=== PATIENT | female | born 1965 ===

== ENCOUNTER 2017-10-13 16:06 | Emergency (ER) | payer BC ==
[2017-10-13 16:43] VITALS: BP 130/73
[2017-10-13] MEDS ORDERED: Tetan/Diph/Pertus SYR(Tdap)* 0.5 ML SYR(BOOSTRIX) use SYR IM ONE (17:14)
[2017-10-13] MEDS ORDERED: Amoxicillin/Clavulanate TAB* 875 MG PO ONE (17:14)
--- NOTE | 2017-10-13 17:19 | UC ---
Bite Injury/Animal HPI - HPI Summary HPI Summary: Pt is a 52 year old female presenting to the with a chief complaint of a dog bite. Three medium sized dogs, the biggest around 50 pounds, [place] [address] and she saw the dogs, wanting to help them. She got the smallest puppy on a leash, tried to find the dog owners but was unsuccessful. One of the other dogs came up to her and bit her lower left leg, and is unsure if that specific dog had a collar or ID. She bandaged the abrasions with bandaids and Neosporin. She denies pain or impacted gait. Her last tetanus shot was 04/23/10. 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 Severity Currently: Mild Severity Initially: Mild Pain Intensity: 0 Pain Scale Used: 0-10 Numeric Onset/Duration: Sudden Onset, Still Present Type of Bite: Animal - dog Has Animal Been Immunized?: Unknown Character: Abrasion/Laceration Aggravating Factor(s): Nothing Associated Signs And Symptoms: Positive: Erythema Hx of Bite: Unprovoked - on property, trying to find owners of dogs Animal Available for Observation: No Animal Control Notified: No - Allergies/Home Medications Allergies/Adverse Reactions: Allergies Allergy/AdvReac Type Severity Reaction Status Date / Time No Known Allergies Allergy Verified 10/13/17 16:44 PMH/Surg Hx/FS Hx/Imm Hx Previously Healthy: Yes Cardiovascular History: Other Other Cardiovascular History: negative hypertension Respiratory History: Other Other Respiratory History: negative COPD - Surgical History Surgical History: None - Family History Known Family History: Negative: Hypertension, Diabetes - Social History Occupation: Employed Part-time Alcohol Use: Weekly Substance Use Type: None Smoking Status (MU): Never Smoked Tobacco - Immunization History Most Recent Tetanus Shot: 04/23/10 Review of Systems Constitutional: Negative - fever Skin: Other - multiple abrasions on lower left leg All Other Systems Reviewed And Are Negative: Yes Physical Exam - Summary Physical Exam Summary: Appearance: Well-appearing, Well-nourished Skin: Warm, multiple superficial abrasions to left lower anterior leg, covered with Neosporin and bandaids. Nontender to palpation. No underlying erythema. Eyes: Normal ENT: Normal Neck: Supple, nontender Respiratory: Clear to auscultation Cardiovascular: Normal S1, S2. No murmurs. Normal distal pulses in tibial and radial bilaterally. Abdomen: Soft, nontender Musculoskeletal: Normal, Strength/ROM Intact Neurological: Normal distal neuro exam, A&Ox3 Psychiatric: Normal General: No acute distress Gait: normal Triage Information Reviewed: Yes Vital Signs: Initial Vital Signs Temp 98.8 F 10/13/17 16:38 Pulse 72 10/13/17 16:38 Resp 16 10/13/17 16:38 BP 130/73 10/13/17 16:38 Pulse Ox 100 10/13/17 16:38 Vital Signs Reviewed: Yes Bite Injury Course/Dx - Course Course Of Treatment: Distal neurovascular exam remains intact. Patient started on antibiotics and instructed to follow up with primary care physician and to return for any worsening or concerning symptoms. Vital signs stable. Patient also given tetanus shot. agrees to and understands discharge instructions. - Differential Dx/Diagnosis Provider Diagnoses: dog bite lower leg left Discharge - Sign-Out/Discharge Documenting (check all that apply): Patient Departure All imaging exams completed and their final reports reviewed: No Studies - Discharge Plan Condition: Stable Disposition: HOME Prescriptions: Amoxicillin/Clavulanate TAB* [Augmentin TAB 875*] 875 mg PO BID #14 tab Patient Education Materials: Animal Bite (ED) Referrals: No Primary Care Phys,NOPCP [Primary Care Provider] - Additional Instructions: PLEASE FINISH MEDICATIONS DIRECTED. PLEASE KEEP WOUNDS COVERED AND USE ANTIBIOTIC OINTMENT TWICE DAILY. PLEASE SEEK IMMEDIATE MEDICAL ATTENTION FOR ANY WORSENING OR CONCERNING SYMPTOMS. - Billing Disposition and Condition Condition: STABLE Disposition: Home - Attestation Statements Document Initiated by Marlon: Yes Documenting Scribe: Debbie Leonard Provider For Whom Marlon is Documenting (Include Credential): Rob Martinez MD. Scribe Attestation: Debbie Espinoza, scribed for Rob Martinez MD. on 10/13/17 at 2250. Scribe Documentation Reviewed: Yes Provider Attestation: The documentation as recorded by the Debbie polk accurately reflects the service I personally performed and the decisions made by me, Rob Martinez MD.
== END 2017-10-13 17:45 | disposition home or self-care (01) ==
LOC: UCEAST 16:06
DX: S80.872A Other superficial bite, left lower leg, initial encounter (principal); W54.0XXA Bitten by dog, initial encounter; Y93.89 Activity, other specified; Y92.9 Unspecified place or not applicable
CPT/HCPCS: 90471; 90715; 99212; A9270-GY; G0463

== ENCOUNTER 2018-01-02 15:46 | Emergency (ER) | payer BC ==
[2018-01-02 16:00] VITALS: BP 137/83
--- NOTE | 2018-01-02 16:32 | UC ---
Skin Complaint HPI - HPI Summary HPI Summary: 52 y/o female presents to the urgent care c/o a small lump in his Rt buttocks close to her genital area for the past 2 weeks. Pt states she though it was ging to resolve w/ warm compresses, but still present. [place] and she is concern that it is going to worsen, it will get bigger. Pt states pain at touch is 1/10. Pt denies fever, SOB, chest pain,abdominal pain, Hx of MRSA, N/v/D, vaginal discharge or urinary symptoms. 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 Negative: Nausea, Vomiting, Fever, Chills, Abdominal Pain - Allergy/Home Medications Allergies/Adverse Reactions: Allergies Allergy/AdvReac Type Severity Reaction Status Date / Time No Known Allergies Allergy Verified 01/02/18 16:01 Review of Systems All Other Systems Reviewed And Are Negative: Yes Constitutional: Positive: Negative Skin: Positive: Other - small lump in her RT buttucks w/ mild pain and swellig Eyes: Positive: Negative ENT: Positive: Negative Respiratory: Positive: Negative Cardiovascular: Positive: Negative Gastrointestinal: Positive: Negative Genitourinary: Positive: Negative Motor: Positive: Negative Neurovascular: Positive: Negative Musculoskeletal: Positive: Negative Neurological: Positive: Negative Psychological: Positive: Negative Is Patient Immunocompromised?: No PMH/Surg Hx/FS Hx/Imm Hx Previously Healthy: Yes - Pt denies PMHX - Surgical History Surgical History: None - Family History Known Family History: Positive: Cardiac Disease Negative: Diabetes - Social History Occupation: Employed Full-time Lives: With Family Alcohol Use: Weekly Substance Use Type: None Smoking Status (MU): Never Smoked Tobacco - Immunization History Most Recent Tetanus Shot: 04/23/10 Physical Exam - Summary Physical Exam Summary: Vital Signs Reviewed: Yes General: well developed, well nourished female sitting in the examining table w/ o any apparent distress Eye Exam: Normal Eyes: Positive: Conjunctiva Clear - PERRLA, EOMI, fundi grossly normal ENT: Positive: Normal ENT inspection, Hearing grossly normal, Pharynx normal, TMs normal Neck: Positive: Supple, Nontender, No Lymphadenopathy Respiratory: Positive: Chest non-tender, Lungs clear, Normal breath sounds, No respiratory distress Cardiovascular: Positive: RRR, No Murmur, Pulses Normal, Brisk Capillary Refill Abdomen Description: Positive: Nontender, No Organomegaly, Soft. Negative: CVA Tenderness (R), CVA Tenderness (L) Bowel Sounds: Positive: Present Musculoskeletal: Positive: Strength Intact, ROM Intact, No Edema Neurological: Positive: Alert, Muscle Tone Normal Psychological Exam: Normal Skin: Positive: Positive small erythematous pustule on the RT gluteus that is mildly indurated and fluctuant, no tenderness to palpation, discrete swelling, and warm to touch about 0.8cm x0.8cm in size. FROM of phalanx, sensation is intact, capillary refill WNL, reflexes WNL Triage Information Reviewed: Yes Vital Signs: Initial Vital Signs Temp 97.9 F 01/02/18 15:55 Pulse 76 01/02/18 15:55 Resp 16 01/02/18 15:55 BP 137/83 01/02/18 15:55 Pulse Ox 100 01/02/18 15:55 Course/Dx - Course Course Of Treatment: 52 y/o female presents to the urgent care c/o a small lump in his Rt buttocks close to her genital area for the past 2 weeks. Pt states she though it was ging to resolve w/ warm compresses, but still present. [place] and she is concern that it is going to worsen, it will get bigger. Pt states pain at touch is 1/10. Pt denies fever, SOB, chest pain, abdominal pain, Hx of MRSA, N/v/D, vaginal discharge or urinary symptoms. Hx obtained. Pt w/ a discrete abscess on the Rt gluteus about 0.8cmx .08cm in size w/ mild induration on examination. No need for I&D at this time. Pt advised to continue applying warm compresses. Pt Rx Bactrim PO and Bacitrain oint as directed below. Pt advised fever develops and pain increase despite ABX to go immediately to the ER for further management. D/C instructions explained. Pt understood and agreed with D/C instructions. Left the clinic ambulating A&OX3. - Differential Diagnoses - Skin Complaint Differential Diagnoses: Abscess, Cellulitis, Contact Dermatitis, Impetigo, MRSA , Tinea - Diagnoses Provider Diagnoses: 1- Abscess on RT gluteus Discharge - Sign-Out/Discharge Documenting (check all that apply): Patient Departure - d/c home All imaging exams completed and their final reports reviewed: No Studies - Discharge Plan Condition: Stable Disposition: HOME Prescriptions: Bacitracin OINTMENT* 1 applic TOPICAL TID #1 tube Sulfamethox/Trimethoprim DS* [Bactrim DS 800/160 TAB*] 1 tab PO BID #14 tab Patient Education Materials: Abscess (ED) Referrals: [facility] [place] [facility] [Outside] - 3 Days Additional Instructions: 1-Please take full course of antibiotic to avoid resistance. Keep wound clean and dry with a sterile dressing. Apply bacitracin topical as directed 2- apply warm compresses at least 3/day for 2 days. 3-If you develop fever or redness despite antibiotic please go to the ER immediately or return to the Urgent care. 4- If abscess increases in size or it becomes very painful please return to the urgent care or f/u w/ your PCP for further management. - Billing Disposition and Condition Condition: STABLE Disposition: Home
== END 2018-01-02 17:19 | disposition home or self-care (01) ==
LOC: UCEAST 15:46
DX: L02.31 Cutaneous abscess of buttock (principal)
CPT/HCPCS: 99212; G0463

== ENCOUNTER 2018-01-31 16:15 | Emergency (ER) | payer BC ==
[2018-01-31 16:25] VITALS: BP 110/80
[2018-01-31] MEDS ORDERED: Lidocaine 1% MPF wEPI 200,000* 30 ML SDV INJ ONE (16:38)
--- NOTE | 2018-01-31 16:50 | UC ---
Skin Complaint HPI - HPI Summary HPI Summary: Developed painful bump on R buttock/labia area over a month ago. Used oral antibiotics and the inflammation went down, but the bump is still there and bothering her. It never drained. - History of Current Complaint Chief Complaint: UCSkin Time Seen by Provider: 01/31/18 16:29 Stated Complaint: SKIN COMPLAINT Hx Obtained From: Patient Hx Last Menstrual Period: post menopause ?: No Onset/Duration: Gradual Onset, Still Present Skin Exposure Onset/Duration: Weeks Ago Timing: Constant Onset Severity: Moderate Current Severity: Mild Pain Intensity: 0 Character: Pain, Redness, Raised Aggravating Factor(s): Touch Alleviating Factor(s): Other - antibiotics Associated Signs & Symptoms: Positive: Tenderness - Allergy/Home Medications Allergies/Adverse Reactions: Allergies Allergy/AdvReac Type Severity Reaction Status Date / Time No Known Allergies Allergy Verified 01/02/18 16:01 PMH/Surg Hx/FS Hx/Imm Hx Previously Healthy: Yes - Surgical History Surgical History: None - Family History Known Family History: Positive: Cardiac Disease Negative: Hypertension, Diabetes - Social History Occupation: Employed Full-time Alcohol Use: Weekly Substance Use Type: None Smoking Status (MU): Never Smoked Tobacco - Immunization History Most Recent Tetanus Shot: 04/23/10 Review of Systems All Other Systems Reviewed And Are Negative: Yes Constitutional: Positive: Negative Skin: Positive: Other - lump Eyes: Positive: Negative ENT: Positive: Negative Respiratory: Positive: Negative Cardiovascular: Positive: Negative Gastrointestinal: Positive: Negative Genitourinary: Positive: Negative Motor: Positive: Negative Neurovascular: Positive: Negative Musculoskeletal: Positive: Negative Neurological: Positive: Negative Psychological: Positive: Negative Is Patient Immunocompromised?: No Physical Exam Triage Information Reviewed: Yes Appearance: Well-Appearing, No Pain Distress, Well-Nourished Vital Signs: Initial Vital Signs Temp 97.2 F 01/31/18 16:19 Pulse 78 01/31/18 16:19 Resp 16 01/31/18 16:19 BP 110/80 01/31/18 16:19 Pulse Ox 99 01/31/18 16:19 Vital Signs Reviewed: Yes Eye Exam: Normal Eyes: Positive: Conjunctiva Clear ENT Exam: Normal ENT: Positive: Normal ENT inspection, Hearing grossly normal, Pharynx normal, TMs normal Dental Exam: Normal Neck exam: Normal Neck: Positive: Supple, Nontender Respiratory Exam: Normal Respiratory: Positive: Chest non-tender, Lungs clear, Normal breath sounds, No respiratory distress, No accessory muscle use Cardiovascular Exam: Normal Cardiovascular: Positive: RRR, No Murmur Musculoskeletal Exam: Normal Neurological Exam: Normal Neurological: Positive: Alert Psychological Exam: Normal Skin Exam: Other - 2cm soft fluctuant hyperpigmented round nontender lesion adjacent to R labia majora. I&D-ed, pt vernell well. Procedures - Incision and Drainage Right Buttocks Anesthesia: Lidocaine - 3mL Instrument(s): Scalpel - Small debris expressed Course/Dx - Diagnoses Provider Diagnosis: Encounter for incision and drainage procedure, Abscess of labia Discharge - Sign-Out/Discharge Documenting (check all that apply): Patient Departure All imaging exams completed and their final reports reviewed: No Studies - Discharge Plan Condition: Stable Disposition: HOME Patient Education Materials: Abscess Incision and Drainage (DC) Referrals: No Primary Care Phys,NOPCP [Primary Care Provider] - Bor Lam MD [Medical Doctor] - If Needed Additional Instructions: Though your abscess was resolving, there was some debris still in there that I drained today. I do not think you will need antibiotics as there is no indication you have active infection. If you have new swelling or pain, please come back or follow up with the surgeon named here. - Billing Disposition and Condition Condition: STABLE Disposition: Home
== END 2018-01-31 17:05 | disposition home or self-care (01) ==
LOC: UCEAST 16:15
DX: N76.4 Abscess of vulva (principal)
CPT/HCPCS: 56405; 99211; G0463; J2001